=== PATIENT | male | born 1950 | race Caucasian/White ===

== ENCOUNTER 2018-09-18 12:11 | Outpatient (REF) | payer MEDICARE, MEDICAID, SELFPAY ==
[2018-09-18 20:12] LABS: ALT 33 U/L (12-78); AST 21 U/L (15-37); Albumin 3.9 g/dL (3.4-5.0); Alkaline Phosphatase 98 U/L (46-116); Anion Gap 9.8 mmol/L (3-11); BUN 20 mg/dL (7-18); Bilirubin, Total 0.4 mg/dL (0.2-1.0); CO2 26.2 mmol/L (21.0-32.0); CREATININE 0.93 mg/dL (0.70-1.30); Calcium 8.8 mg/dL (8.5-10.1); Chloride 105 mmol/L (98-107); Glucose 103 mg/dL (70-100); Potassium 4.2 mmol/L (3.5-5.1); Sodium 141 mmol/L (136-145); Total Protein 6.8 g/dL (6.4-8.2)
[2018-09-18 20:37] LABS: LDL CHOLESTEROL 83 mg/dL (<100); TROPONIN-I 7.4 ug/mL (4.0-12.0)
== END 2018-09-18 12:31 ==
LOC: NCHCN 12:11
PROVIDERS: PCP Internal Medicine; Visit Provider Internal Medicine
DX: G40.209 Localization-related (focal) (partial) symptomatic epilepsy and epileptic syndromes with complex partial seizures, not intractable, without status epilepticus (principal); F31.73 Bipolar disorder, in partial remission, most recent episode manic; Z51.81 Encounter for therapeutic drug level monitoring; Z79.899 Other long term (current) drug therapy
CPT/HCPCS: 80053; 83721; 80156; 85025

== ENCOUNTER 2019-03-21 12:37 | Outpatient (REF) | payer MEDICARE, MEDICAID, SELFPAY ==
[2019-03-21 20:31] LABS: HCT 44.8 % (40.0-50.0); HGB 15.6 g/dL (13.5-17.5); Mean Corp. HGB Concentration 34.8 g/dL (32.0-36.0); Mean Corpuscular Hemoglobin 31.6 pg (27.0-33.0); Mean Corpuscular Volume 90.9 fL (80-95); Mean Platelet Volume 11.5 fL (8.0-11.0); Platelet Count 170 x1000/uL (130-400); RBC 4.93 m/cumm (4.50-6.00); RBC Distribution Width 13.2 % (11.8-14.1); White Blood Cell Count 4.81 k/cumm (4.4-10.8)
[2019-03-21 20:58] LABS: ALT 29 U/L (12-78); LDL CHOLESTEROL 86 mg/dL (<100); TROPONIN-I 6.1 ug/mL (4.0-12.0)
== END 2019-03-21 12:57 ==
LOC: NCHCN 12:37
PROVIDERS: PCP Internal Medicine; Visit Provider Internal Medicine
DX: G40.209 Localization-related (focal) (partial) symptomatic epilepsy and epileptic syndromes with complex partial seizures, not intractable, without status epilepticus (principal); Z51.81 Encounter for therapeutic drug level monitoring; Z79.899 Other long term (current) drug therapy; Z87.820 Personal history of traumatic brain injury; E78.5 Hyperlipidemia, unspecified; M48.061 Spinal stenosis, lumbar region without neurogenic claudication
CPT/HCPCS: 83721; 85027; 80156; 84460

== ENCOUNTER 2019-09-24 11:29 | Outpatient (REF) | payer MEDICARE, MEDICAID, SELFPAY ==
[2019-09-24 19:42] LABS: ALT 36 U/L (16-63); AST 15 U/L (15-37); Albumin 4.2 g/dL (3.4-5.0); Alkaline Phosphatase 94 U/L (46-116); Anion Gap 11.1 mmol/L (3-11); BUN 14 mg/dL (7-18); Bilirubin, Total 0.3 mg/dL (0.2-1.0); CO2 26.9 mmol/L (21.0-32.0); CREATININE 0.93 mg/dL (0.70-1.30); Calcium 8.9 mg/dL (8.5-10.1); Chloride 106 mmol/L (98-107); Glucose 90 mg/dL (70-100); LDL CHOLESTEROL 81 mg/dL (<100); Potassium 3.8 mmol/L (3.5-5.1); Sodium 144 mmol/L (136-145)
== END 2019-09-24 11:49 ==
LOC: NCHCN 11:29
PROVIDERS: PCP Internal Medicine; Visit Provider Internal Medicine
DX: R73.9 Hyperglycemia, unspecified (principal); E78.5 Hyperlipidemia, unspecified; M48.061 Spinal stenosis, lumbar region without neurogenic claudication; G40.209 Localization-related (focal) (partial) symptomatic epilepsy and epileptic syndromes with complex partial seizures, not intractable, without status epilepticus; F31.73 Bipolar disorder, in partial remission, most recent episode manic; Z51.81 Encounter for therapeutic drug level monitoring
CPT/HCPCS: 80053; 83721; 80156; 83036

== ENCOUNTER 2020-03-28 13:58 | Outpatient (REF) | payer OTHER, MEDICAID, SELFPAY ==
[2020-03-28 18:51] LABS: HCT 43.3 % (40.0-50.0); HGB 15.2 g/dL (13.5-17.5); Mean Corp. HGB Concentration 35.1 g/dL (32.0-36.0); Mean Corpuscular Volume 91.2 fL (80-95); Mean Platelet Volume 10.8 fL (8.0-11.0); Platelet Count 200 x1000/uL (130-400); RBC 4.75 m/cumm (4.50-6.00); RBC Distribution Width 13.1 % (11.8-14.1); White Blood Cell Count 5.42 k/cumm (4.4-10.8)
[2020-03-28 19:04] LABS: ALT 31 U/L (16-63); AST 24 U/L (15-37); Albumin 4.1 g/dL (3.4-5.0); Alkaline Phosphatase 99 U/L (46-116); Anion Gap 7.4 mmol/L (3-11); BUN 24 mg/dL (7-18); Bilirubin, Total 0.3 mg/dL (0.2-1.0); CO2 27.6 mmol/L (21.0-32.0); CREATININE 1.21 mg/dL (0.70-1.30); Calcium 8.9 mg/dL (8.5-10.1); Chloride 106 mmol/L (98-107); Estimated GFR 59.12 (mL/min/1.73m2); Glucose 124 mg/dL (74-106); Potassium 4.5 mmol/L (3.5-5.1); Sodium 141 mmol/L (136-145); TROPONIN-I 5.6 ug/mL (4.0-12.0); Total Protein 6.8 g/dL (6.4-8.2)
== END 2020-03-28 14:18 ==
LOC: NCHCN 13:58
PROVIDERS: PCP Internal Medicine; Visit Provider Internal Medicine
DX: F31.73 Bipolar disorder, in partial remission, most recent episode manic (principal); G40.209 Localization-related (focal) (partial) symptomatic epilepsy and epileptic syndromes with complex partial seizures, not intractable, without status epilepticus; Z51.81 Encounter for therapeutic drug level monitoring; Z79.899 Other long term (current) drug therapy
CPT/HCPCS: 80053; 85027; 80156

== ENCOUNTER 2021-06-29 15:19 | Outpatient (REF) | payer OTHER, MEDICAID, SELFPAY ==
[2021-06-29 19:33] LABS: HCT 44.7 % (40.0-50.0); HGB 15.5 g/dL (13.5-17.5); MCHC 34.7 % (32.0-36.0); MCV 89.4 fL (80-95); MPV 10.7 fL (8.0-11.0); Platelet Count 216 10^3/uL (130-400); RDW 12.4 % (11.8-14.1); RDW-SD 40.6 fL; WBC 5.17 10^3/uL (4.4-10.8)
[2021-06-29 19:49] LABS: ALT 32 U/L (16-63); AST 21 U/L (15-37); Albumin 4.2 g/dL (3.4-5.0); Alkaline Phosphatase 95 U/L (46-116); Anion Gap 10.2 mmol/L (3-11); BUN 25 mg/dL (7-18); Bilirubin, Total 0.3 mg/dL (0.2-1.0); CO2 25.8 mmol/L (21.0-32.0); CREATININE 1.1 mg/dL (0.70-1.30); Chloride 107 mmol/L (98-107); Glucose 101 mg/dL (74-106); Potassium 3.8 mmol/L (3.5-5.1); Sodium 143 mmol/L (136-145); TROPONIN-I 5.4 ug/mL (4.0-12.0); Total Protein 7.1 g/dL (6.4-8.2)
== END 2021-06-29 15:20 | disposition home or self-care (01) ==
LOC: NCHCN 15:19
PROVIDERS: PCP Internal Medicine; Visit Provider Internal Medicine
DX: G40.209 Localization-related (focal) (partial) symptomatic epilepsy and epileptic syndromes with complex partial seizures, not intractable, without status epilepticus (principal); Z51.81 Encounter for therapeutic drug level monitoring; M48.061 Spinal stenosis, lumbar region without neurogenic claudication; Z87.820 Personal history of traumatic brain injury
CPT/HCPCS: 80053; 85027; 80156

== ENCOUNTER 2022-06-28 12:03 | Outpatient (REF) | payer MEDICARE, MEDICAID, SELFPAY ==
[2022-06-28 19:01] LABS: HCT 45.7 % (40.0-50.0); HGB 16.1 g/dL (13.5-17.5); MCH 31.1 pg (27.0-33.0); MCHC 35.2 % (32.0-36.0); MCV 88 fL (80-95); MPV 10.7 fL (8.0-11.0); Platelet Count 188 10^3/uL (130-400); RBC 5.17 10^6/uL (4.36-5.78); RDW 12.3 % (11.8-14.1); RDW-SD 40.6 fL; WBC 5.57 10^3/uL (4.4-10.8)
[2022-06-28 19:13] LABS: ALT 28 U/L (16-63); AST 22 U/L (15-37); Alkaline Phosphatase 108 U/L (46-116); Anion Gap 8.5 mmol/L (3-11); BUN 26 mg/dL (7-18); Bilirubin, Total 0.3 mg/dL (0.2-1.0); CO2 27.5 mmol/L (21.0-32.0); CREATININE 1.1 mg/dL (0.70-1.30); Calcium 8.7 mg/dL (8.5-10.1); Chloride 104 mmol/L (98-107); Glucose 96 mg/dL (74-106); Sodium 140 mmol/L (136-145)
[2022-06-28 19:31] LABS: TROPONIN-I 6.2 ug/mL (4.0-12.0)
== END 2022-06-28 12:04 | disposition home or self-care (01) ==
LOC: NCHCN 12:03
PROVIDERS: PCP Internal Medicine; Visit Provider Internal Medicine
DX: G40.209 Localization-related (focal) (partial) symptomatic epilepsy and epileptic syndromes with complex partial seizures, not intractable, without status epilepticus (principal); F31.73 Bipolar disorder, in partial remission, most recent episode manic; Z51.81 Encounter for therapeutic drug level monitoring; Z79.899 Other long term (current) drug therapy
CPT/HCPCS: 80053; 85027; 80156

== ENCOUNTER 2023-06-29 13:06 | Outpatient (REF) | payer MEDICARE, MEDICAID, SELFPAY ==
[2023-06-29 21:34] LABS: Abs Immature Grans 0.02 10^3/uL (0.0-0.06); Absolute Basophil Count 0.04 10^3/uL (0.0-0.2); Absolute Eosinophil Count 0.99 10^3/uL (0.0-0.7); Absolute Monocyte Count 0.38 10^3/uL (0.1-0.8); Absolute Neutrophil Count 4.08 10^3/uL (1.2-6.7); Basophils % 0.6; Eosinophils % 14.5; HCT 44.1 % (40.0-50.0); HGB 15.4 g/dL (13.5-17.5); Immature Grans % 0.3; Lymphocytes % 19.1; MCH 30.8 pg (27.0-33.0); MCHC 34.9 % (32.0-36.0); MCV 88 fL (80-95); MPV 10.7 fL (8.0-11.0); Monocytes % 5.6; Neutrophils % 59.9; Platelet Count 220 10^3/uL (130-400); RDW 13.2 % (11.8-14.1); RDW-SD 42.3 fL; WBC 6.81 10^3/uL (4.4-10.8)
[2023-06-29 22:45] LABS: ALT 22 U/L (16-63); AST 18 U/L (15-37); Alkaline Phosphatase 108 U/L (46-116); Anion Gap 8.7 mmol/L (3-11); BUN 26 mg/dL (7-18); Bilirubin, Total 0.3 mg/dL (0.2-1.0); CO2 28.3 mmol/L (21.0-32.0); CREATININE 1.1 mg/dL (0.70-1.30); Calcium 9.1 mg/dL (8.5-10.1); Chloride 105 mmol/L (98-107); Estimated GFR 70.01 (mL/min/1.73m2); Glucose 131 mg/dL (74-106); LDL CHOLESTEROL 78 mg/dL (<100); Potassium 4.3 mmol/L (3.5-5.1); Sodium 142 mmol/L (136-145); TROPONIN-I 5.2 ug/mL (4.0-12.0); TSH 2.58 uIU/mL (0.36-3.74); Total Protein 7.1 g/dL (6.4-8.2)
== END 2023-06-29 13:07 | disposition home or self-care (01) ==
LOC: NCHCN 13:06
PROVIDERS: PCP Internal Medicine; Visit Provider Internal Medicine
DX: M48.061 Spinal stenosis, lumbar region without neurogenic claudication (principal); F31.73 Bipolar disorder, in partial remission, most recent episode manic; G40.209 Localization-related (focal) (partial) symptomatic epilepsy and epileptic syndromes with complex partial seizures, not intractable, without status epilepticus
CPT/HCPCS: 80053; 83721; 80156; 84443; 85025